=== PATIENT | male | born 1970 | race Caucasian/White ===

== ENCOUNTER 2017-10-08 17:19 | Emergency (ER) | payer BC, OTHER ==
[2017-10-08 19:29] VITALS: BP 134/75
--- NOTE | 2017-10-08 19:31 | UC ---
Skin Complaint HPI - HPI Summary HPI Summary: 47 y/o male presents to the urgent care c/o tick bite to right side abdomen about 3 weeks ago, he removed it himself. He is concerned about Lyme serology after talking to his boss today and would like to do the Lyme serology. Pt has not noticed a bull's eye rash, Tick was only on him for only 1/2 hour. He denies fever, joint pains, BUSCH, chest pain, palpitations,abdominal pain, N/V/D. - History of Current Complaint Chief Complaint: UCSkin Time Seen by Provider: 10/08/17 19:29 Stated Complaint: TICK Hx Obtained From: Patient Onset/Duration: Sudden Onset, Lasting Weeks - 3 weeks, Resolved - removed tick Skin Exposure Onset/Duration: Weeks Ago - 3 weeks Timing: Constant Onset Severity: Mild Current Severity: Mild Pain Intensity: 0 Pain Scale Used: 0-10 Numeric Location: Discrete - lateral side of Rt abdomen Character: Redness Aggravating Factor(s): Touch Alleviating Factor(s): Other - removal of tick Associated Signs & Symptoms: Positive: Negative. Negative: Fever, Chills, Rash , Drainage, Tenderness Related History: Possible Reaction to: Insect - Allergy/Home Medications Allergies/Adverse Reactions: Allergies Allergy/AdvReac Type Severity Reaction Status Date / Time No Known Allergies Allergy Verified 10/08/17 19:29 Home Medications: Home Medications Loratadine [Claritin 10 MG CAP] 10 mg PO DAILY 10/08/17 [History Confirmed 10/08] Review of Systems Constitutional: Negative Skin: Rash - tick bite on the lateral side of RT abdomen Eyes: Negative ENT: Negative Respiratory: Negative Cardiovascular: Negative Gastrointestinal: Negative Genitourinary: Negative Motor: Negative Neurovascular: Negative Musculoskeletal: Negative Neurological: Negative Psychological: Negative Is Patient Immunocompromised?: No All Other Systems Reviewed And Are Negative: Yes PMH/Surg Hx/FS Hx/Imm Hx Previously Healthy: Yes Other Respiratory History: seasonal allergies - Surgical History Surgical History: None - Family History Known Family History: Positive: None - Pt denies FMHX - Social History Occupation: Employed Full-time Lives: With Family Alcohol Use: Occasionally Substance Use Type: None Smoking Status (MU): Never Smoked Tobacco Physical Exam - Summary Physical Exam Summary: Vital Signs Reviewed: Yes General: well developed, well nourished female sitting in the examining table w/ o any apparent distress. Eyes: Positive: Conjunctiva Clear - PERRLA, EOMI ENT: Positive: Normal ENT inspection, Hearing grossly normal, Pharynx normal, TMs normal Neck: Positive: Supple, Nontender, No Lymphadenopathy Respiratory: Positive: Chest nontender, Lungs clear, Normal breath sounds Cardiovascular: Positive: RRR, No Murmur, Pulses Normal Abdomen Description: Positive: Nontender, No Organomegaly, Soft. Negative: CVA Tenderness (R), CVA Tenderness (L) Bowel Sounds: Positive: Present Musculoskeletal: Positive: Strength Intact, ROM Intact, No Edema Neurological Exam: Normal Psychological Exam: Normal Skin: Positive: rashes - Lateral side or RT abdomen with tick bite with surrounding erythema, non tender to palpation. tick no longer present, no swelling or drainage observed. Triage Information Reviewed: Yes Vital Signs: Initial Vital Signs Temp 98.4 F 10/08/17 19:22 Pulse 73 10/08/17 19:22 Resp 16 10/08/17 19:22 BP 134/75 10/08/17 19:22 Pulse Ox 99 10/08/17 19:22 Course/Dx - Course Course Of Treatment: 47 y/o male presents to the urgent care c/o tick bite to right side abdomen about 3 weeks ago, he removed it himself. He is concerned about Lyme serology after talking to his boss today and would like to do the Lyme serology. Pt has not noticed a bull's eye rash, Tick was only on him for only 1/2 hour. He denies fever, joint pains, BUSCH, chest pain, palpitations, abdominal pain, N/V/D. Hx obtained. Pt w/ Lateral side or RT abdomen with tick bite with surrounding erythema, non tender to palpation. tick no longer present , no swelling or drainage observed on examination. Pt w/ 3 weeks of tick exposure. Lyme serology ordered. Pt will be notified of the results. However strongly advised to f/u with Dr Robbins if Lyme serology returns positive for further management. Pt understood and agreed with plan of care. - Differential Diagnoses - Skin Complaint Differential Diagnoses: Abscess, Cellulitis, Contact Dermatitis, MRSA, Tick Born Illness, Other - bee sting, insect bite - Diagnoses Provider Diagnoses: 1- lateral side of RT abdomen tick bite Discharge - Sign-Out/Discharge Documenting (check all that apply): Discharge/Admit/Transfer - D/C home - Discharge Plan Condition: Stable Disposition: HOME Patient Education Materials: Tick Bite (ED) Referrals: [facility] [place] [facility] [Outside] - 1 Week [place],Enoch Combs [Medical Doctor] - If Needed Additional Instructions: 1- Please observe the area for the development or Erythema Migrans for upto 30 days following exposure. Components of the tick saliva can cause transient erythema that should not be confused with Erythema Migrans. If you develop the bull's eye rash, fever, joint pains please return to the urgent care or f/u with your PCP for further management. 2-Antibiotic prophylaxis can't be given today since it has been already 3 weks of tick exposure. Lyme serology was drawn today and sent to lab you will be notified of any abnormality. Please f/u w/ Infectious disease DR Robbins for further management if Lyme Serolgy result is positive - Billing Disposition and Condition Condition: STABLE Disposition: Home
== END 2017-10-08 19:51 | disposition home or self-care (01) ==
LOC: UCCORT 17:19
DX: S30.861A Insect bite (nonvenomous) of abdominal wall, initial encounter (principal); W57.XXXA Bitten or stung by nonvenomous insect and other nonvenomous arthropods, initial encounter; Y93.9 Activity, unspecified; Y92.9 Unspecified place or not applicable
CPT/HCPCS: 86618; 99201; G0463